=== PATIENT | male | born 1985 | race Caucasian/White ===

== ENCOUNTER 2021-03-29 16:45 | Emergency (ER) | payer OTHER, MEDICAID ==
[~2021-03-29] VITALS: Ht 167.7 cm; Wt 81.6 kg
[2021-03-29 16:47] VITALS: BP 155/87
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
== END 2021-03-29 17:50 | disposition home or self-care (01) ==
LOC: ER FS 16:47
DX: S01.81XA Laceration without foreign body of other part of head, initial encounter (principal); S50.02XA Contusion of left elbow, initial encounter; S50.12XA Contusion of left forearm, initial encounter; J45.909 Unspecified asthma, uncomplicated; R40.2410 Glasgow coma scale score 13-15, unspecified time; F17.200 Nicotine dependence, unspecified, uncomplicated; V19.9XXA Pedal cyclist (driver) (passenger) injured in unspecified traffic accident, initial encounter
CPT/HCPCS: 99283